=== PATIENT | male | born 1990 | race Caucasian/White ===

== ENCOUNTER 2019-06-08 09:03 | Day surgery (SDC) | payer OTHER ==
[~2019-06-08] VITALS: Ht 180.3 cm; Wt 65.1 kg
[~2019-06-08 09:03] MED LIST: NO ACTIVE MEDS
[2019-06-08 09:45] VITALS: Ht 180.3 cm; Wt 65.1 kg
--- NOTE | 2019-06-08 10:03 | PREAC ---
Date/Time of Note Date/Time of Note DATE: 06/08/19 TIME: 10:02 Anesthesia Eval and Record Evaluation Time Pre-Procedure Interview DATE: 06/08/19 TIME: 10:02 Age 29 Sex male NPO: 8 hrs Preoperative diagnosis rectal bleeding Planned procedure colonoscopy Past Medical History Past Medical History: None Surgery & Anesthesia Issues No known issue Meds Anticoagulation: No Beta Charles within 24 hr: No Reason Beta Charles not given: Pt. not on B-Charles Reported Medications [No Active Meds] No Conflict Check 06/08/19 Meds reviewed: Yes Allergies Coded Allergies: neomycin (Verified Adverse Reaction, Mild, 06/08/19) Allergies Reviewed: Yes Labs/Studies Labs Reviewed: Reviewed by anesthesiologist test: N/A Studies: ECG (n/a), CXR (n/a) Pre-procedure Exam Airway: Adequate mouth opening Mallampati: Mallampati I Teeth: Normal Lung: Normal Heart: Normal ASA Physical Status ASA physical status: 1 Emergency: None Planned Anesthetic General/MAC: MAC Planned Pain Management Parenteral pain med Pre-operative Attestations Prior to commencing anesthesia and surgery, the patient was re-evaluated, there was verification of: *The patient's identity *The results of appropriate recent lab work and preoperative vital signs *The above evaluation not changing prior to induction *Anesthetic plan, risk benefits, alternative and complications discussed with patient/family; questions answered; patient/family understands, accepts and wishes to proceed. MAYITO BELL MD Jun 08, 2019 10:03
[2019-06-08 10:16] VITALS: BP 117/76; PULSE 103; RESP 18
[2019-06-08] MEDS ORDERED: FENTAnyl 50 MCG/ML VIAL ONE (10:17)
[2019-06-08] MEDS ORDERED: PROPOFOL 20 ML ONE ×2 (10:17→10:30)
[2019-06-08 10:58] VITALS: BP 121/70; PULSE 75; RESP 20
--- NOTE | 2019-06-11 11:40 | PAC ---
Date/Time of Note Date/Time of Note DATE: 06/10/19 TIME: 11:40 Post-Anesthesia Notes Post-Anesthesia Note Last documented vital signs Vital Signs Date Temp Pulse Resp B/P (MAP) Pulse Ox O2 O2 Flow FiO2 Time Delivery Rate 06/08/19 75 20 121/70 98 Room Air 10:58 (87) 06/08/19 98.6 10:16 Activity: WNL Respiratory function: WNL Cardiovascular function: WNL Mental status: Baseline Pain reasonably controlled: Yes Hydration appropriate: Yes Nausea/Vomiting absent: No MAYITO BELL MD Jun 11, 2019 11:40
== END 2019-06-08 14:29 | disposition home or self-care (01) ==
LOC: GIL 09:03
PROVIDERS: ATTEND Internal Medicine Gastroenterology
DX: D12.5 Benign neoplasm of sigmoid colon (principal); K64.8 Other hemorrhoids
CPT/HCPCS: 45380; 88305; J3010; Z7610